=== PATIENT | female | born 1990 | race Hispanic/Latino ===

== ENCOUNTER 2018-12-19 19:01 | Emergency (ER) | payer OTHER ==
[2018-12-19 21:47] LABS: Urine Blood NEGATIVE (NEG); Urine Glucose NEGATIVE (NEG); Urine Protein NEGATIVE (NEG)
--- NOTE | 2018-12-19 21:51 | ER ---
Nurse's Notes [facility] Name: Le Noriega Age: 28 yrs Sex: Female : 1990 Arrival Date: 12/19/2018 Time: 19:05 Bed 19 Private MD: Diagnosis: Low back pain Presentation: 12/19 19:12 Presenting complaint: Patient states: lower back pain X2 days. pt with hx injury last ak1 year. Transition of care: patient was not received from another setting of care. Onset of symptoms is unknown. Risk Assessment: Do you want to hurt yourself or someone else? Patient reports no desire to harm self or others. Initial Sepsis Screen: Does the patient meet any 2 criteria? No. Patient's initial sepsis screen is negative. Does the patient have a suspected source of infection? No. Patient's initial sepsis screen is negative. Care prior to arrival: None. 19:12 Acuity: DELANEY 4 ak1 19:12 Method Of Arrival: Ambulatory ak1 Triage Assessment: 19:13 General: Appears in no apparent distress. Behavior is calm, cooperative. Pain: ak1 Complains of pain in back. EENT: No signs and/or symptoms were reported regarding the EENT system. Neuro: No deficits noted. Cardiovascular: No deficits noted. Respiratory: No deficits noted. GI: No signs and/or symptoms were reported involving the gastrointestinal system. : No signs and/or symptoms were reported regarding the genitourinary system. Derm: No signs and/or symptoms reported regarding the dermatologic system. Musculoskeletal: pt c/o pain in lower back X2 days after getting out of her car. pt with hx back injury last year. 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 - Social history:: Smoking status: Patient/guardian denies using tobacco. - Ebola Screening: : No symptoms or risks identified at this time. Screenin:15 Abuse screen: Denies threats or abuse. Denies injuries from another. Nutritional ak1 screening: No deficits noted. Tuberculosis screening: No symptoms or risk factors identified. Fall Risk None identified. Assessment: 21:00 General: Appears in no apparent distress. comfortable, Behavior is calm, cooperative, rr5 appropriate for age. Pain: Complains of pain in lower back Pain does not radiate. Pain currently is 9 out of 10 on a pain scale. Quality of pain is described as aching, Pain began gradually, Is intermittent. 21:00 Neuro: Level of Consciousness is awake, alert, obeys commands, Oriented to person, rr5 place, time, situation, Appropriate for age. Cardiovascular: Capillary refill < 3 seconds Patient's skin is warm and dry. Respiratory: Airway is patent Respiratory effort is even, unlabored, Respiratory pattern is regular, symmetrical. GI: No signs and/or symptoms were reported involving the gastrointestinal system. : No signs and/or symptoms were reported regarding the genitourinary system. EENT: No signs and/or symptoms were reported regarding the EENT system. Derm: Skin is intact, Skin temperature is warm. Musculoskeletal: Circulation, motion, and sensation intact. Capillary refill < 3 seconds, Reports pain in low back Denies trauma. 21:30 Reassessment: Patient appears in no apparent distress at this time. No changes from rr5 previously documented assessment. 22:30 Reassessment: Patient appears in no apparent distress at this time. Patient is alert, rr5 oriented x 3, equal unlabored respirations, skin warm/dry/pink. discharge instruction given and explained without complaints made. Vital Signs: 19:13 BP 143 / 77; Pulse 68; Resp 16; Temp 97.96; Pulse Ox 100% on R/A; Weight 86.18 kg (R); ak1 Height 5 ft. (152.40 cm) (R); Pain 9/10; 21:10 BP 151 / 75; Pulse 72; Resp 19; Temp 97.8; Pulse Ox 100% ; Pain 9/10; rr5 22:00 BP 150 / 81; Pulse 71; Resp 15; Temp 97.6; Pulse Ox 99% ; rr5 22:15 BP 145 / 85; Pulse 76; Resp 16; Pulse Ox 98% on R/A; rr5 22:30 BP 140 / 80; Pulse 79; Resp 15; Temp 97.7; Pulse Ox 99% on R/A; rr5 19:13 Body Mass Index 37.11 (86.18 kg, 152.40 cm) ak1 ED Course: 19:05 Patient arrived in ED. mr 19:13 Triage completed. ak1 19:13 Arm band placed on Patient placed in waiting room, Patient notified of wait time. ak1 19:15 Patient has correct armband on for positive identification. ak1 20:12 Yoselin Palma FNP-C is [facility]. snw 20:12 Joshua Ballard MD is Attending Physician. snw 21:06 Juan Garcia, RN is Primary Nurse. rr5 22:10 No provider procedures requiring assistance completed. Patient did not have IV access rr5 during this emergency room visit. Administered Medications: 22:00 Drug: TORadol 30 mg Route: IM; Site: left gluteus; rr5 22:30 Follow up: Response: No adverse reaction rr5 Outcome: 21:50 Discharge ordered by . snw 22:30 Discharged to home ambulatory, with family. rr5 22:30 Condition: stable 22:30 Discharge instructions given to patient, Instructed on discharge instructions, follow up and referral plans. medication usage, Demonstrated understanding of instructions, follow-up care, medications, Prescriptions given X 1. 22:34 Patient left the ED. rr5 Signatures: Yoselin Palma FNP-C FNP-Juarez Ina OchoaAshley, RN RN ak1 Juan Garcia, RN RN rr5
--- NOTE | 2018-12-19 21:51 | EDPHYS ---
Physician Documentation [facility] Name: Le Noriega Age: 28 yrs Sex: Female : 1990 Arrival Date: 12/19/2018 Time: 19:05 Bed 19 Private MD: ED Physician Joshua Ballard HPI: 12/19 22:31 This 28 yrs old Female presents to ER via Ambulatory with complaints of Back snw Pain. 22:31 The patient presents with pain that is acute, with no known mechanism of injury. The snw symptoms are located in the low back. Onset: The symptoms/episode began/occurred suddenly, today. The pain does not radiate. Associated signs and symptoms: The patient has no apparent associated signs or symptoms. The problem was sustained from unknown cause. Severity of symptoms: At their worst the symptoms were moderate. The patient has experienced a previous episode. The patient has not recently seen a physician. 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 - Social history:: Smoking status: Patient/guardian denies using tobacco. - Ebola Screening: : No symptoms or risks identified at this time. ROS: 22:31 Constitutional: Negative for fever, chills, and weight loss, Eyes: Negative for injury, snw pain, redness, and discharge, ENT: Negative for injury, pain, and discharge, Neck: Negative for injury, pain, and swelling, Cardiovascular: Negative for chest pain, palpitations, and edema, Respiratory: Negative for shortness of breath, cough, wheezing, and pleuritic chest pain, Abdomen/GI: Negative for abdominal pain, nausea, vomiting, diarrhea, and constipation, : Negative for injury, bleeding, discharge, and swelling, MS/Extremity: Negative for injury and deformity, Skin: Negative for injury, rash, and discoloration, Neuro: Negative for headache, weakness, numbness, tingling, and seizure. 22:31 Back: Positive for pain at rest, pain with movement, of the lumbar area, left low back and right low back. Exam: 22:32 Constitutional: This is a well developed, well nourished patient who is awake, alert, snw and in no acute distress. Head/Face: Normocephalic, atraumatic. Eyes: Pupils equal round and reactive to light, extra-ocular motions intact. Lids and lashes normal. Conjunctiva and sclera are non-icteric and not injected. Cornea within normal limits. Periorbital areas with no swelling, redness, or edema. ENT: Nares patent. No nasal discharge, no septal abnormalities noted. Tympanic membranes are normal and external auditory canals are clear. Oropharynx with no redness, swelling, or masses, exudates, or evidence of obstruction, uvula midline. Mucous membranes moist. Neck: Trachea midline, no thyromegaly or masses palpated, and no cervical lymphadenopathy. Supple, full range of motion without nuchal rigidity, or vertebral point tenderness. No Meningismus. Chest/axilla: Normal chest wall appearance and motion. Nontender with no deformity. No lesions are appreciated. Cardiovascular: Regular rate and rhythm with a normal S1 and S2. No gallops, murmurs, or rubs. Normal PMI, no JVD. No pulse deficits. Respiratory: Lungs have equal breath sounds bilaterally, clear to auscultation and percussion. No rales, rhonchi or wheezes noted. No increased work of breathing, no retractions or nasal flaring. Abdomen/GI: Soft, non-tender, with normal bowel sounds. No distension or tympany. No guarding or rebound. No evidence of tenderness throughout. Skin: Warm, dry with normal turgor. Normal color with no rashes, no lesions, and no evidence of cellulitis. MS/ Extremity: Pulses equal, no cyanosis. Neurovascular intact. Full, normal range of motion. Neuro: Awake and alert, GCS 15, oriented to person, place, time, and situation. Cranial nerves II-XII grossly intact. Motor strength 5/5 in all extremities. Sensory grossly intact. Cerebellar exam normal. Normal gait. Psych: Awake, alert, with orientation to person, place and time. Behavior, mood, and affect are within normal limits. 22:32 Back: pain, that is mild, ROM is normal, normal spinal alignment noted, CVA tenderness, is absent, muscle spasm, is not present. Vital Signs: 19:13 BP 143 / 77; Pulse 68; Resp 16; Temp 97.96; Pulse Ox 100% on R/A; Weight 86.18 kg (R); ak1 Height 5 ft. (152.40 cm) (R); Pain 9/10; 21:10 BP 151 / 75; Pulse 72; Resp 19; Temp 97.8; Pulse Ox 100% ; Pain 9/10; rr5 22:00 BP 150 / 81; Pulse 71; Resp 15; Temp 97.6; Pulse Ox 99% ; rr5 22:15 BP 145 / 85; Pulse 76; Resp 16; Pulse Ox 98% on R/A; rr5 22:30 BP 140 / 80; Pulse 79; Resp 15; Temp 97.7; Pulse Ox 99% on R/A; rr5 19:13 Body Mass Index 37.11 (86.18 kg, 152.40 cm) ak1 MDM: 21:36 Patient medically screened. [facility] 12/19 20:13 Order name: Urine Culture [facility] 12/19 20:13 Order name: Urine Microscopic Only; Complete Time: 22:09 w 12/19 20:13 Order name: Urine Test (obtain specimen); Complete Time: 21:16 w 12/19 21:14 Order name: Urine Dipstick--Ancillary (enter results); Complete Time: 21:49 [facility] [place] 12/19 21:14 Order name: Urine --Ancillary (enter results); Complete Time: 21:49 [facility] [place] 12/19 20:13 Order name: Urine Dipstick-Ancillary (obtain specimen); Complete Time: 21:16 snw Administered Medications: 22:00 Drug: TORadol 30 mg Route: IM; Site: left gluteus; rr5 22:30 Follow up: Response: No adverse reaction rr5 Disposition: 12/20 01:43 Co-signature as Attending Physician, Joshua Ballard MD. Disposition: 12/19/18 21:50 Discharged to Home. Impression: Low back pain. - Condition is Stable. - Discharge Instructions: Back Pain, Adult, Hypertension, Musculoskeletal Pain, Back Injury Prevention, [id number], Back Exercises, [id number], Cryotherapy, Rehydration, Adult, Heat Therapy. - Prescriptions for orphenadrine citrate 100 mg Oral Tablet Sustained Release - take 1 tablet by ORAL route 2 times per day As needed; 20 tablet. - Medication Reconciliation Form, Thank You Letter, Antibiotic Education, Prescription Opioid Use, Work release form form. - Follow up: Private Physician; When: 2 - 3 days; Reason: Recheck today's complaints, Continuance of care, Re-evaluation by your physician. Follow up: Emergency Department; When: As needed; Reason: Worsening of condition. 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 Impression: Low back pain. Condition is rr5 Stable. Forms are Medication Reconciliation Form, Thank You Letter, Antibiotic Education, Prescription Opioid Use. Follow up: Private Physician; When: 2 - 3 days; Reason: Recheck today's complaints, Continuance of care, Re-evaluation by your physician. Follow up: Emergency Department; When: As needed; Reason: Worsening of condition. snw
[2018-12-19 22:02] LABS: Urine Bacteria NONE SEEN /HPF (<20); Urine RBC NONE SEEN /HPF (NONE SEEN)
[2018-12-19 22:03] LABS: Urine Culture Reflex Order NOT NEEDED
[2018-12-19] MEDS ORDERED: KETOROLAC 30 MG/ML INJ ONE (22:09)
== END 2018-12-19 22:34 | disposition home or self-care (01) ==
LOC: ER 19:01
DX: M54.5 Low back pain (principal)
CPT/HCPCS: 81003; 81015; 81025; 87086; 87088; 96372; 99283

== ENCOUNTER 2021-05-22 19:42 | Emergency (ER) | payer OTHER ==
--- OUTSIDE RECORDS SUMMARY | 2021-05-22 19:46 | XMS REPORT | Continuity of Care Document ---
:1990 Author Organization [facility] t Address [address] [place] [address] Care Team Providers Name Role Phone Tj Hawley Primary Care Physician Gilles LEMUS Attending Clinician Unavailable Gilles Alcantara Attending Clinician Lab Attending Clinician Unavailable Tj Hawley Attending Clinician Tj LOPEZ Attending Clinician Unavailable Paris ESCOBAR Attending Clinician Unavailable FARHAN LUND Attending Clinician Unavailable [place] ESCOBAR Admitting Clinician Unavailable Payers Payer Name Policy Type Policy Number Effective Date Expiration Date Jenn lam [facility] [id number] 2019 CHOICE MEDICAID 00:00:00 [place] [id number] 2019 00:00:00 [facility] [id number] 2018 CHOICE 00:00:00 Problems Condition Condition Condition Status Onset Resolution Last Treating Co mments Source Name Details Category Date Date Treatment Clinician Date Abnormal Abnormal Disease Active 2020-07 Overview: Un irvin maternal maternal 0-07 Formattin ity of glucose glucose 00:00: g of this [place] tolerance, tolerance, 00 note Me dical antepartum antepartum might be Branch different from the original. Pending 3hr gtt Supervisio Supervisio Disease Active 2020-07 U nivers n of n of 0-06 it[place] of high[place]risk [place] Branch Multiparit Multiparit Disease Active 2020-07 U nivers y y 0-06 ity of 00:00: [place] 00 [facility] Obesity in Obesity in Disease Active 2020-07 U nivers 0-06 ity of 00:00: [place] 00 [facility] History of History of Disease Active 2020-07 U nivers 0-06 ity of section section 00:00: [place] 00 [facility] COVID-19 COVID-19 Disease Active 2020-07 Unive rs vaccine vaccine 0-06 ity of series series 00:00: [place] completed completed [facility] Branch History of History of Disease Active U nivers gestationa gestationa 7-22 it y of l l 00:00: [place] hypertensi hypertensi 00 Me dical on on Branch Allergies, Adverse Reactions, Alerts Allergy Allergy Status Severity Reaction(s) Onset Inactive Treating Comm ents Source Name Type Date Date Clinician NO KNOWN Drug Active Univers ALLERGIE Class ity of S [facility] Social History Social Habit Start Date Stop Date Quantity Comments Source ASSERTION 2021-03-18 [facility] 00:00:00 [facility] Exposure to Not sure [facility] SARS-CoV-2 [facility] [place] (event) Branch Alcohol intake 2021-05-10 2021-05-10 Ex-drinker [facility] 00:00:00 00:00:00 (finding) [facility] Tobacco use and 2019-06-10 2019-06-10 Never used Universit y of exposure 00:00:00 00:00:00 [facility] [birth year] Universit y of 00:00:00 00:00:00 [facility] Smoking Status Start Date Stop Date Source Never smoker University [facility] Medications Ordered Filled Start Stop Current Ordering Indication Dosage Frequency Signature Comments Components Source Medication Medication Date Date Medication? Clinician (SIG) Name Name VITAFOL 2020-07 Yes [id number] TAKE ONE Un irvin ULTRA 29 mg 0-08 CAPSULE BY it y of iron- 1 00:00: MOUTH [place] mg-200 mg 00 DAILY [facility] Branch VITAFOL 2020-07 Yes [id number] TAKE ONE Un irvin ULTRA 29 mg 0-08 CAPSULE BY it y of iron- 1 00:00: MOUTH [place] mg-200 mg 00 DAILY [facility] Branch Immunizations Ordered Filled Immunization Date Status Comments Sourc e Immunization Name Name Influenza Virus 2021-04-13 Completed Universit y of Vaccine Quad IM, 00:00:00 [facility] dical Preserv and ABX Branch Free 2-64 YRS Influenza Virus 2021-04-13 Completed Universit y of Vaccine Quad IM, 00:00:00 [facility] dical Preserv and ABX Branch Free 6 MO-64 YRS SARS-COV-2 COVID-19 2020-11-23 Completed Unive rsity of MODERNA VACCINE 00:00:00 [facility] SARS-COV-2 COVID-19 2020-10-28 Completed Unive rsity of MODERNA VACCINE 00:00:00 [facility] TDAP 2019-11-14 Completed University 00:00:00 [facility] TDAP 2019-11-14 Completed [facility] 00:00:00 [facility] Influenza Virus 2019-04-08 Completed Universit y of Vaccine Quad .5 mL 00:00:00 [facility] 6+ MO Branch Influenza Virus 2019-04-08 Completed Universit y of Vaccine Quad .5 mL 00:00:00 [facility] 6+ MO Branch Vital Signs Vital Name Observation Time Observation Value Comments Source Systolic blood 2021-05-10 14:19:00 137 mm[Hg] Univer sity of pressure [facility] Diastolic blood 2021-05-10 14:19:00 89 mm[Hg] Unive rsity of pressure [facility] Heart rate 2021-05-10 14:19:00 91 /min [facility] Body temperature 2021-05-10 14:19:00 35.78 Vero [facility] Respiratory rate 2021-05-10 14:19:00 18 /min [facility] Body height 2021-05-10 14:19:00 152.4 cm [facility] Body weight 2021-05-10 14:19:00 106.958 kg [facility] BMI 2021-05-10 14:19:00 46.05 kg/m2 [facility] Procedures Procedure Date / Time Performed Performing Clinician Sourc e POCT URINALYSIS 2021-05-10 14:36:00 Shyanne Lopez [facility] Encounters Start End Encounter Admission Attending Care Care Encounter Source Date/Time Date/Time Type Type Clinicians Facility Department ID 2021-06-07 2021-06-07 Outpatient R MARIAH [facility] [id number] Univers 10:00:00 10:00:[id number] [facility] 2021-06-07 2021-06-07 Outpatient R MARIAH [facility] [id number] Univers 10:00:00 10:00:[address] [facility] 2021-05-31 2021-05-31 Outpatient R [facility] [id number] Univers 11:15:00 11:15:[id number] [facility] 2021-05-31 2021-05-31 Outpatient P [facility] [id number] Univers 11:15:00 11:15:00 [facility] 2021-05-10 2021-05-10 [facility] [id number] Univers 09:30:00 09:41:[address] 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 2021-04-19 2021-04-19 Piano Sounding Board Matcher Lab, Ang-Rmchp [facility] 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 ity of [facility] [id number] Huseyin as MATERNAL [id number] [facility] & CHILD [address] [place] [address] 2021-04-19 2021-04-19 Outpatient R [facility] [id number] Univers 08:15:00 08:15:[id number] [facility] 2021-04-192021-04-19 Outpatient R [facility] [id number] Univers 08:15:00 08:15:00 [facility] 2021-04-13 2021-04-13 Outpatient R AKINSIPE, [facility] [id number] Univers 14:30:00 14:30:00 SHYANNE ity o f [facility] 2021-04-13 2021-04-13 Outpatient R [facility] [id number] Univers 14:00:00 14:00:[id number] [facility] 2020-03-10 2020-03-10 Outpatient R AKINSIPE, [facility] [id number] Univers 15:00:00 15:00:00 SHYANNE ity o [facility] 2020-03-10 2020-03-10 Outpatient R AKINSIPE, [facility] [id number] Univers 15:00:00 15:00:00 SHYANNE ity o f [facility] 2020-02-18 2020-02-18 Outpatient R AKINSIPE, [facility] [id number] Univers 11:00:00 11:00:00 SHYANNE ity o f [facility] 2020-02-04 2020-02-04 Outpatient R AKINSIPE, [facility] [id number] Univers 13:00:00 13:00:00 SHYANNE ity o f [facility] 2020-01-27 2020-01-27 Outpatient P DENYSH, [facility] EVETTE [id number] Univers 19:01:00 19:01:[address] [facility] 2020-01-27 2020-01-27 Outpatient R AKINSIPE, [facility] [id number] Univers 15:45:00 15:45:00 SHYANNE [id number] ity o f [facility] 2020-01-27 2020-01-27 Outpatient R AKINSIPE, [facility] [id number] Univers 15:45:00 15:45:00 SHYANNE ity o f [facility] 2020-01-20 2020-01-20 Outpatient R AKINSIPE, [facility] [id number] Univers 14:45:00 14:45:00 SHYANNE [id number] ity o f [facility] 2020-01-20 2020-01-20 Outpatient R AKINSIPE, [facility] [id number] Univers 14:45:00 14:45:00 SHYANNE braulio o f [facility] 2020-01-13 2020-01-13 Outpatient R AKINSIPE, [facility] [id number] Univers 13:00:00 13:00:00 SHYANNE braulio o [facility] 2020-01-13 2020-01-13 Outpatient R AKINSIPE, [facility] [id number] Univers 13:00:00 13:00:00 SHYANNE braulio o [facility] 2020-01-06 2020-01-06 Outpatient R AKINSIPE, [facility] [id number] Univers 12:45:00 12:45:00 SHYANNE braulio o [facility] 2020-01-06 2020-01-06 Outpatient R AKINSIPE, [facility] [id number] Univers 12:45:00 12:45:00 SHYANNE braulio o [facility] 2019-12-22 2019-12-22 Outpatient R AKINSIPE, [facility] [id number] Univers 14:45:00 14:45:00 SHYANNE [id number] braulio o [facility] 2019-12-22 2019-12-22 Outpatient R AKINSIPE, [facility] [id number] Univers 14:45:00 14:45:00 SHYANNE braulio o [facility] 2019-12-08 2019-12-08 Outpatient R AKINSIPE, [facility] [id number] Univers 10:00:00 10:00:00 SHYANNE itluciano o [facility] 2019-12-08 2019-12-08 Outpatient R AKINSIPE, [facility] [id number] Univers 10:00:00 10:00:00 SHYANNE braulio o [facility] 2019-11-27 2019-11-27 Outpatient R AKINSIPE, [facility] [id number] Univers 08:30:00 08:30:00 SHYANNE [id number] itluciano o [facility] 2019-11-27 2019-11-27 Outpatient R AKINSIPE, [facility] [id number] Univers 08:30:00 08:30:00 SHYANNE ity o f [facility] 2019-11-14 2019-11-14 Outpatient R AKINSIPE, [facility] [id number] Univers 15:30:00 15:30:00 SHYANNE ity o f [facility] 2019-11-14 2019-11-14 Outpatient R AKINSIPE, [facility] [id number] Univers 15:30:00 15:30:00 SHYANNE ity o f [facility] 2019-11-05 2019-11-05 Outpatient [facility] [id number] Univers 08:15:00 08:15:00 [id number] ity of [facility] 2019-11-05 2019-11-05 Outpatient R AKINSIPE, [facility] [id number] Univers 08:15:00 08:15:00 SHYANNE ity o f [facility] 2019-10-30 2019-10-30 Outpatient R AKINSIPE, [facility] [id number] Univers 15:30:00 15:30:00 SHYANNE [id number] ity o f [facility] 2019-10-30 2019-10-30 Outpatient R AKINSIPE, [facility] [id number] Univers 15:30:00 15:30:00 SHYANNE ity o f [facility] 2019-10-30 2019-10-30 Outpatient R AKINSIPE, [facility] [id number] Univers 13:15:00 13:15:00 SHYANNE ity o f [facility] 2019-10-29 2019-10-29 Outpatient R AKINSIPE, [facility] [id number] Univers 14:00:00 14:00:00 SHYANNE [id number] ity o f [facility] 2019-10-02 2019-10-02 Outpatient R AKINSIPE, [facility] [id number] Univers 15:30:00 15:30:00 SHYANNE [id number] ity o f [facility] 2019-10-02 2019-10-02 Outpatient R AKINSIPE, [facility] [id number] Univers 15:30:00 15:30:00 SHYANNE ity o f [facility] 2019-09-08 2019-09-08 Outpatient P [facility] [id number] Univers 13:30:00 13:30:00 ity [facility] 2019-09-04 2019-09-04 Outpatient R JESSICA [facility] [id number] Univers 15:30:00 15:30:00 SHYANNE ity o f [facility] 2019-08-07 2019-08-07 Outpatient R JESSICA, [facility] [id number] Univers 15:30:00 16:25:08 SHYANNE ity o f [facility] 2019-07-29 2019-07-29 Outpatient P FARHAN [facility] [id number] Univers 13:30:00 14:07:40 WINSTON stevenson y of SCLAUDIA [facility] Results Test Description Test Time Test Comments Results Result Comments Source POCT URINALYSIS W SPECIFIC GRAVITY 2021-05-10 14:36:00 Test Item Value Reference Range Interpretation Comme nts POCT U SP GRAV (test code = 3255) * 1.005-1.025 POCT PH U (test code = 3254) * 5-8 POCT U LEUK EST (test code = 3263) * Negative - Negative POCT U NIT (test code = 3262) * Negative - Negative POCT U PROT (test code = 3259) Negative - Negative POCT U GLU (test code = 3256) negative Negative - Negative POCT U KETONE (test code = 3258) * Negative - Negative POCT U UROBILI (test code = 3260) * 0.2-1 POCT U BILI (test code = 3261) * Negative - Negative POCT U BLD (test code = 3257) * Negative - Negative POCT U COLOR (test code = 3266) POCT U APPEAR (test code = 3267) [facility]
[2021-05-22 22:34] LABS: Urine Blood 2+ (Negative); Urine Glucose Negative (Negative); Urine Protein Negative (Negative)
[2021-05-22 22:51] LABS: Absolute Lymphocytes (CBC) 2.6 K/uL (0.7-4.9); Basophils % 0.5 % (0-1.3); Hematocrit 34.8 % (36.0-45.0); Lymphocytes % 26.9 % (15.3-44.8); MPV 7.7 fL (7.6-11.3); RBC Red Blood Cell Count 4.65 M/uL (3.86-4.86)
[2021-05-22 23:19] LABS: BUN Blood Urea Nitrogen 16 mg/dL (7-18); Bicarbonate 25 mmol/L (21-32); Glucose Level 94 mg/dL (74-106); HCG, Quantitative 18715 mIU/mL (1-3); Potassium 3.8 mmol/L (3.5-5.1); Sodium Level 136 mmol/L (136-145)
--- NOTE | 2021-05-23 01:12 | ER ---
Nurse's Notes [facility] Name: Le Noriega Age: 30 yrs Sex: Female : 1990 Arrival Date: 05/22/2021 Time: 19:46 Bed 20 Private MD: Diagnosis: Other specified abnormal uterine and vaginal bleeding-in ;Threatened Presentation: 05/22 20:05 Chief complaint: Patient states: Pt is 11 weeks and 2 days , states vaginal vg1 discharge that is brown in color that began today. Denies NVD, ABD cramping/pain, or vaginal bleeding. Coronavirus screen: Vaccine status: Patient reports receiving the 2nd dose of the covid vaccine. Client denies travel out of the [place] in the last 14 days. Ebola Screen: Patient negative for fever greater than or equal to 101.5 degrees Fahrenheit, and additional compatible Ebola Virus Disease symptoms. Initial Sepsis Screen: Does the patient meet any 2 criteria? No. Patient's initial sepsis screen is negative. Does the patient have a suspected source of infection? No. Patient's initial sepsis screen is negative. Risk Assessment: Do you want to hurt yourself or someone else? Patient reports no desire to harm self or others. Onset of symptoms was May 22, 2021. 20:05 Method Of Arrival: Ambulatory vg1 20:05 Acuity: DELANEY 3 vg1 Triage Assessment: 20:06 General: Appears in no apparent distress. comfortable, Behavior is calm, cooperative. vg1 Pain: Denies pain. 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 - Social history:: Smoking status: Patient denies any tobacco usage or history of. Patient/guardian denies using alcohol, street drugs, The patient lives with family. - Family history:: not pertinent. Screenin:05 Abuse screen: Denies threats or abuse. Nutritional screening: No deficits noted. cc4 Tuberculosis screening: No symptoms or risk factors identified. Fall Risk None identified. Assessment: 20:35 Reassessment: Patient appears in no apparent distress at this time. General: Appears in cc4 no apparent distress. Behavior is calm, cooperative. Pain: Denies pain. Neuro: No deficits noted. Level of Consciousness is awake, alert, obeys commands, Oriented to person, place, time, situation. Cardiovascular: No deficits noted. Respiratory: No deficits noted. Airway is patent Respiratory effort is even, unlabored, Respiratory pattern is regular, symmetrical. GI: No signs and/or symptoms were reported involving the gastrointestinal system. 20:35 General: Reports having small amount brownish vaginal discharge that started \T\ 1900 cc4 tonight \T\ now is slightly pink in color; denies any abdominal cramping or pain.. : No signs and/or symptoms were reported regarding the genitourinary system. EENT: No deficits noted. 20:35 Derm: No deficits noted. Skin is intact. Musculoskeletal: No signs and/or symptoms cc4 reported regarding the musculoskeletal system. Capillary refill < 3 seconds, Range of motion: intact in all extremities. Vital Signs: 20:05 BP 131 / 89; Pulse 89; Resp 16; Temp 97.9; Pulse Ox 100% ; Weight 106.59 kg; Height 5 vg1 ft. 0 in. (152.40 cm); Pain 0/10; 21:00 BP 124 / 75; Pulse 87; Resp 20; Pulse Ox 100% on R/A; cc4 23:00 BP 124 / 85; Pulse 89; Resp 20; Pulse Ox 99% ; cc4 05/23 00:00 BP 133 / 87; Pulse 84; Resp 20; Pulse Ox 100% on R/A; cc4 01:00 BP 133 / 81; Pulse 77; Resp 20; Pulse Ox 99% ; cc4 01:40 BP 138 / 89; Pulse 90; Resp 20; Temp 98.2; Pulse Ox 100% on R/A; cc4 05/22 20:05 Body Mass Index 45.89 (106.59 kg, 152.40 cm) vg1 ED Course: 05/22 19:46 Patient arrived in ED. bp1 20:05 Patient has correct armband on for positive identification. Bed in low position. Call cc4 light in reach. Side rails up X 1. Pulse ox on. NIBP on. 20:06 Triage completed. vg1 20:08 Arm band placed on. vg1 20:59 Tigist Kim MD is Attending Physician. ma2 21:27 Ella Boss, RN is Primary Nurse. cc4 21:59 TRANSVAG OB In Process Unspecified. EDMS 22:34 Inserted saline lock: 20 gauge in left antecubital area, using aseptic technique. Blood oe collected. 22:44 Urine --Ancillary (enter results) Sent. cc4 22:45 Abo/rh Typing Sent. cc4 22:45 Basic Metabolic Panel Sent. cc4 22:45 CBC with Diff Sent. cc4 22:45 Quantitative Hcg Sent. cc4 05/23 01:10 Matthew Lee MD is Referral Physician. ma2 01:40 No provider procedures requiring assistance completed. cc4 01:40 IV discontinued, intact, bleeding controlled, No redness/swelling at site. Pressure cc4 dressing applied. Administered Medications: No medications were administered Outcome: 01:10 Discharge ordered by MD. ma2 01:40 Discharged to home via wheelchair, with .. cc4 01:40 Condition: stable 01:40 Discharge instructions given to patient, Instructed on discharge instructions, follow up and referral plans. Demonstrated understanding of instructions, follow-up care. 01:56 Patient left the ED. cc4 Signatures: Dispatcher [employer] [facility] Carroll Tushar Tigist Santamaria MD MD ma2 Brooklynn Arambula, RN RN vg1 Claudette Davey Christie, RN RN cc4 Corrections: (The following items were deleted from the chart) 05/22 20:08 20:06 PSHx: None; vg1 vg1
--- NOTE | 2021-05-23 01:12 | EDPHYS ---
Physician Documentation [facility] Name: Le Noriega Age: 30 yrs Sex: Female : 1990 Arrival Date: 05/22/2021 Time: 19:46 Bed 20 Private MD: ED Physician Tigist Kim HPI: 05/22 21:22 This 30 yrs old Female presents to ER via Ambulatory with complaints of ma2 Vaginal Discharge, + PREG 11 WEEKS. 21:22 The patient presents with vaginal bleeding that is. Onset: The symptoms/episode ma2 began/occurred gradually, 1 day(s) ago. Associated signs and symptoms: Pertinent positives: vaginal bleeding, Pertinent negatives: diarrhea, dysuria, fever, nausea, vaginal discharge. Severity of symptoms: At their worst the symptoms were mild, in the emergency department the symptoms are unchanged. The patient has not experienced similar symptoms in the past. 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 - Social history:: Smoking status: Patient denies any tobacco usage or history of. Patient/guardian denies using alcohol, street drugs, The patient lives with family. - Family history:: not pertinent. ROS: 21:22 Positive for vaginal bleeding, Negative for hematuria, flank pain, burning with ma2 urination, bladder incontinence, vaginal itching, menstrual abnormality, missed period. 21:22 Constitutional: Negative for fever, chills, and weight loss, Eyes: Negative for injury, pain, redness, and discharge. 21:22 All other systems are negative. Exam: 21:22 Constitutional: This is a well developed, well nourished patient who is awake, alert, ma2 and in no acute distress. Head/Face: Normocephalic, atraumatic. Eyes: Pupils equal round and reactive to light, extra-ocular motions intact. Lids and lashes normal. Conjunctiva and sclera are non-icteric and not injected. Cornea within normal limits. Periorbital areas with no swelling, redness, or edema. ENT: Nares patent. No nasal discharge, no septal abnormalities noted. Tympanic membranes are normal and external auditory canals are clear. Oropharynx with no redness, swelling, or masses, exudates, or evidence of obstruction, uvula midline. Mucous membranes moist. Neck: Trachea midline, no thyromegaly or masses palpated, and no cervical lymphadenopathy. Supple, full range of motion without nuchal rigidity, or vertebral point tenderness. No Meningismus. Chest/axilla: Normal chest wall appearance and motion. Nontender with no deformity. No lesions are appreciated. Cardiovascular: Regular rate and rhythm with a normal S1 and S2. No gallops, murmurs, or rubs. Normal PMI, no JVD. No pulse deficits. Respiratory: Lungs have equal breath sounds bilaterally, clear to auscultation and percussion. No rales, rhonchi or wheezes noted. No increased work of breathing, no retractions or nasal flaring. Abdomen/GI: Gravid uterus, otherwise soft, non-tender, with normal bowel sounds. No distension or tympany. No guarding or rebound. No evidence of tenderness throughout. Back: No spinal tenderness. No costovertebral tenderness. Full range of motion. Skin: Warm, dry with normal turgor. Normal color with no rashes, no lesions, and no evidence of cellulitis. MS/ Extremity: Pulses equal, no cyanosis. Neurovascular intact. Full, normal range of motion. Neuro: Awake and alert, GCS 15, oriented to person, place, time, and situation. Cranial nerves II-XII grossly intact. Motor strength 5/5 in all extremities. Sensory grossly intact. Cerebellar exam normal. Normal gait. Psych: Awake, alert, with orientation to person, place and time. Behavior, mood, and affect are within normal limits. Vital Signs: 20:05 BP 131 / 89; Pulse 89; Resp 16; Temp 97.9; Pulse Ox 100% ; Weight 106.59 kg; Height 5 vg1 ft. 0 in. (152.40 cm); Pain 0/10; 21:00 BP 124 / 75; Pulse 87; Resp 20; Pulse Ox 100% on R/A; cc4 23:00 BP 124 / 85; Pulse 89; Resp 20; Pulse Ox 99% ; cc4 05/23 00:00 BP 133 / 87; Pulse 84; Resp 20; Pulse Ox 100% on R/A; cc4 01:00 BP 133 / 81; Pulse 77; Resp 20; Pulse Ox 99% ; cc4 01:40 BP 138 / 89; Pulse 90; Resp 20; Temp 98.2; Pulse Ox 100% on R/A; cc4 05/22 20:05 Body Mass Index 45.89 (106.59 kg, 152.40 cm) vg1 [facility]: 05/22 20:59 Patient medically screened. ma2 21:22 Differential diagnosis: dysfunctional uterine bleeding, dysmenorrhea, ectopic ma2 , endometriosis, threatened Ab, complete Ab, missed Ab. 05/23 01:10 Data reviewed: vital signs, nurses notes. Counseling: I had a detailed discussion with ma2 the patient and/or guardian regarding: the historical points, exam findings, and any diagnostic results supporting the discharge/admit diagnosis, the presence of at least one elevated blood pressure reading (>120/80) during this emergency department visit, the need for outpatient follow up. Response to treatment: the patient's symptoms have markedly improved after treatment. 05/22 20:59 Order name: Abo/rh Typing; Complete Time: 23:09 [facility] 05/22 20:59 Order name: Basic Metabolic Panel; Complete Time: 23:23 [facility] 05/22 20:59 Order name: CBC with Diff; Complete Time: 23:09 [facility] 05/22 20:59 Order name: Quantitative Hcg; Complete Time: 23:23 [facility] 05/22 22:34 Order name: Urine Dipstick-Ancillary; Complete Time: 22:45 EDMS 05/22 22:34 Order name: Urine --Ancillary (enter results); Complete Time: 23:45 em 05/22 20:59 Order name: IV Saline Lock; Complete Time: 22:44 [facility] 05/22 20:59 Order name: Labs collected and sent; Complete Time: 22:45 [facility] 05/22 20:59 Order name: NPO; Complete Time: 22:45 [facility] 05/22 20:59 Order name: Urine Dipstick-Ancillary (obtain specimen); Complete Time: 22:33 [facility] 05/22 20:59 Order name: Urine Test (obtain specimen); Complete Time: 22:33 [facility] 05/22 21:59 Order name: TRANSVAG OB EDMS Administered Medications: No medications were administered Disposition Summary: 05/23/21 01:10 Discharge Ordered Location: Home ma2 Condition: Stable ma2 Diagnosis - Other specified abnormal uterine and vaginal bleeding - in ma2 - Threatened ma2 Followup: ma2 - With: Matthew Lee MD - When: Tomorrow - Reason: If symptoms return, Continuance of care Discharge Instructions: - Discharge Summary Sheet ma2 - Threatened Miscarriage, [id number] ma2 Forms: - Medication Reconciliation Form ma2 - Thank You Letter ma2 - Antibiotic Education ma2 - Prescription Opioid Use ma2 Signatures: Dispatcher [employer] EDMS Tigist Kim MD MD ma2 Brooklynn Arambula, RN RN vg1 Corrections: (The following items were deleted from the chart) 05/22 20:08 20:06 PSHx: None; vg1 vg1 21:59 21:19 OB Complete+US.RAD.[email or web address] ordered. EDMS EDMS
[2021-05-23 02:07] VITALS: BP 131/89; TEMP 97.9; O2SAT 100
--- NOTE | 2021-05-23 14:03 | RAD REPORT ---
EXAM DESCRIPTION: US - TRANSVAG OB - 05/23/2021 1:06 am CLINICAL HISTORY: 30 years, Female, vag pain COMPARISON: None. TECHNIQUE: Utilizing a curved array transducer, real-time ultrasound evaluation of the female pelvis was performed. Color Doppler imaging was used to assess vascular flow. A transvaginal probe was used to further delineate adnexal structures. FINDINGS: The study is severely compromised due to patient large body habitus. The uterus demonstrate the presence of a most likely gestational sac measuring approximately 3.55 cm corresponding to a ultrasonographic gestational age of 8 weeks and 5 days. No yolk sac was identified and/or pole. Neither ovary was visualized. No significant adnexal masses were seen. IMPRESSION: PROBABLE GESTATIONAL SAC WITHIN NORMAL VISUALIZED YOLK SAC, POLE AND/OR CARDIAC AC TIVITY. CORRELATE WITH SERIAL BETA-HCG AND/OR FOLLOW-UP ULTRASOUND COULD BE OF ASSISTANCE. Electronically signed by: Jose Carlos Steen MD 05/23/2021 12:50 AM EXPRESSIVE ART THERAPIST Due to temporary technical issues with the PACS/Fluency reporting system, reports are being signed by the in house radiologists without review as a courtesy to insure prompt reporting. The interpreting radiologist is fully responsible for the content of the report.
== END 2021-05-23 01:56 | disposition home or self-care (01) ==
LOC: ER 19:42
DX: O20.0 Threatened abortion (principal)
CPT/HCPCS: 36415; 76813; 80048; 81003; 81025; 84702; 85025; 86900; 86901; 99284